=== PATIENT | female | born 1945 | race Caucasian/White ===

== ENCOUNTER 2018-02-27 11:20 | Emergency (ER) | payer MEDICARE ==
[~2018-02-27] VITALS: Ht 165.1 cm; Wt 68.0 kg
[2018-02-27] MEDS ORDERED: MOBIC15 MG PO (11:31)
[2018-02-27] MEDS ORDERED: PAXIL10 MG PO (11:31)
[2018-02-27] MEDS ORDERED: LISINOPRIL40 MG PO (11:31)
[2018-02-27] MEDS ORDERED: XANAX 0.5 MG0.5 MG PO (11:31)
[2018-02-27] MEDS ORDERED: NORVASC5 MG PO (11:31)
[2018-02-27] MEDS ORDERED: TRAZODONE HCL50 MG PO (11:32)
[2018-02-27 12:07] LABS: ABSOLUTE LYMPHOCYTES 1.6 thou/uL (0.8-5.3); ABSOLUTE MONOCYTES 0.7 thou/uL (0.0-1.2); ABSOLUTE NEUTROPHILS 4.8 thou/uL (1.6-8.1); BASOPHILS 0.5 %; EOSINOPHILS 0.1 %; HEMATOCRIT 42.4 % (37.0-47.0); HEMOGLOBIN 14.1 gm/dL (12.0-15.0); LYMPHOCYTES 22.8 %; MCH 30.6 pg (26.0-34.0); MCHC 33.2 g/dL (28.0-37.0); MCV 92.1 fL (80.0-100.0); MONOCYTES 9.6 %; MPV 9.2 fl. (7.2-11.1); NUCLEATED RBCS 0 /100WBC; PLATELET COUNT* 198 thou/uL (150-400); RDW-CV 14.3 % (10.5-14.5); WBC 7.2 thou/uL (4.0-11.0)
[2018-02-27 12:19] LABS: URINE BILIRUBIN NEGATIVE (Negative); URINE BLOOD TRACE (Negative); URINE CLARITY CLEAR; URINE COLOR YELLOW; URINE GLUCOSE-RANDOM NEGATIVE (Negative); URINE KETONES NEGATIVE (Negative); URINE LEUKOCYTES-REFLEX NEGATIVE (Negative); URINE NITRITE-REFLEX NEGATIVE (Negative); URINE PROTEIN NEGATIVE (Negative); URINE SPECIFIC GRAVITY >= 1.030 (1.005-1.030); URINE UROBILINOGEN 0.2 E.U./dl (0.2-1.0)
[2018-02-27 12:21] LABS: ANION GAP 9 mmol/L (7-16); BUN 12 mg/dL (7-18); CALCIUM 8.8 mg/dL (8.5-10.1); CHLORIDE 102 mmol/L (98-107); CO2 25 mmol/L (21-32); CREATININE 0.8 mg/dL (0.6-1.3); GLUCOSE 134 mg/dL (70-99); POTASSIUM 3.7 mmol/L (3.5-5.1); SODIUM 136 mmol/L (136-145)
[2018-02-27 12:33] LABS: ALBUMIN 2.9 g/dL (3.4-5.0); ALKALINE PHOSPHATASE 89 U/L (46-116); LIPASE 237 U/L (73-393); NT-PRO BRAIN NAT PEPTIDE 26 pg/mL (<300); SGOT 81 U/L (15-37); SGPT 76 U/L (30-65); TOTAL BILIRUBIN 0.2 mg/dL (<0.1-1.0); TOTAL PROTEIN 7.4 g/dL (6.4-8.2); TROPONIN-I LEVEL <0.06 ng/mL (<0.06)
[2018-02-27 12:55] VITALS: BP 132/79
--- NOTE | 2018-02-27 16:46 | EKG ---
[place] [address] ELECTROCARDIOGRAM REPORT Name: RA MARISELAQUEL Room: [facility]#: [id number] Admission: 02/27/18 Attend Phys: Discharge: 02/27/18 Date of : 41 Report #: [id number] THIS REPORT FOR: //name// [facility] ED Test Date: 2018-02-27 Test Time: 12:01:18 Pat Name: VALERIE ANTONIO Department: Room: Gender: F County Auditor: MAYNOR : 1945 Requested By: Quentin Castro Order Number: [id number] MD: Willard Pablo Measurements Intervals [place] Rate: 82 P: 45 W[place]: 137 QRS: 30 QRSD: 88 T: 39 QT: 379 QTc: 443 Interpretive Statements Sinus rhythm No previous ECG available for comparison Electronically Signed On 02-27-2018 16:46:05 [employer] by Willard Pablo [email or web address] <ELECTRONICALLY SIGNED> By: Willard Pablo MD, [facility] 02/27/18 1646 1201 1201 Willard Pablo MD, FACC /EPI
== END 2018-02-27 12:56 | disposition home or self-care (01) ==
LOC: M.ERS 11:20
PROVIDERS: Emergency Medicine
DX: J40 Bronchitis, not specified as acute or chronic (principal); R11.2 Nausea with vomiting, unspecified; I10 Essential (primary) hypertension; F32.9 Major depressive disorder, single episode, unspecified; F41.9 Anxiety disorder, unspecified; M19.90 Unspecified osteoarthritis, unspecified site; Z90.710 Acquired absence of both cervix and uterus